=== PATIENT | female | born 1960 | race Caucasian/White ===

== ENCOUNTER 2020-04-18 22:55 | Emergency (ER) | payer OTHER ==
--- OUTSIDE RECORDS SUMMARY | 2020-04-18 22:59 | XMS REPORT | Continuity of Care Document ---
:1960 Author Organization [facility] t Address [address] [place] [address] Care Team Providers Name Role Phone Unavailable Unavailable Unavailable Payers Payer Name Policy Type Policy Number Effective Date Expiration Date S ource Problems This patient has no known problems. Allergies, Adverse Reactions, Alerts This patient has no known allergies or adverse reactions. Medications This patient has no known medications. Procedures This patient has no known procedures. Encounters Start End Encounter Admission Attending Care Care Encounter Source Date/Time Date/Time Type Type Clinicians Facility Department ID 2019-05-30 2019-05-30 Outpatient [facility] Lauren Guzmanoria 05:53:00 05:53:00 marie salazar [facility] Results This patient has no known results.
[2020-04-18] MEDS ORDERED: ONDANSETRON 4 MG/2 ML VIAL ONE (23:58)
[2020-04-18] MEDS ORDERED: NA CHLORIDE 0.9% 1,000 ML ONE (23:59)
[2020-04-19 00:29] LABS: Absolute Lymphocytes (CBC) 0.7 K/uL (0.7-4.9); Basophils % 0.6 % (0-1.3); Hematocrit 41.1 % (36.0-45.0); Lymphocytes % 13.3 % (15.3-44.8); MPV 8.9 fL (7.6-11.3); RBC Red Blood Cell Count 4.73 M/uL (3.86-4.86)
[2020-04-19 00:39] LABS: ALT/SGPT 17 U/L (12-78); AST/SGOT 18 U/L (15-37); Albumin 3.4 g/dL (3.4-5.0); Alkaline Phosphatase 72 U/L (45-117); BUN Blood Urea Nitrogen 10 mg/dL (7-18); Bicarbonate 26 mmol/L (21-32); Bilirubin Direct 0.1 mg/dL (0-0.2); Bilirubin Total 0.5 mg/dL (0.2-1.0); Glucose Level 101 mg/dL (74-106); Lipase 62 U/L (73-393); Potassium 3.7 mmol/L (3.5-5.1); Protein, Total 7.2 g/dL (6.4-8.2); Sodium Level 137 mmol/L (136-145)
[2020-04-19 01:53] LABS: Urine Blood 1+ (NEG); Urine Glucose NEGATIVE (NEG); Urine Protein NEGATIVE (NEG)
--- NOTE | 2020-04-19 01:54 | ER ---
Nurse's Notes [facility] Name: Annmarie Barroso Age: 60 yrs Sex: Female : 1960 Arrival Date: 04/18/2020 Time: 22:59 Bed 20 Private MD: Diagnosis: Coronavirus infection, unspecified;Nausea Presentation: 04/19 00:08 Chief complaint: Patient states: Reports she was diagnosed with covid on Tuesday has ea been having nausea, denies vomiting and diarrhea. Coronavirus screen: Client reports previous positive COVID test result. Ebola Screen: No symptoms or risks identified at this time. Initial Sepsis Screen: Does the patient meet any 2 criteria? No. Patient's initial sepsis screen is negative. Does the patient have a suspected source of infection? No. Patient's initial sepsis screen is negative. Risk Assessment: Do you want to hurt yourself or someone else? Patient reports no desire to harm self or others. Onset of symptoms was April 19, 2020. 00:08 Method Of Arrival: Ambulatory ea 00:08 Acuity: ISABEL 3 ea Historical: - Allergies: 00:10 Codeine; ea - Immunization history:: Adult Immunizations up to date. - Social history:: Smoking status: Patient denies any tobacco usage or history of. Screenin:09 Abuse screen: Denies threats or abuse. Nutritional screening: No deficits noted. ea Tuberculosis screening: No symptoms or risk factors identified. Fall Risk None identified. Assessment: 00:10 General: Appears uncomfortable, Behavior is appropriate for age. Pain: Denies pain. ea Neuro: Level of Consciousness is awake, alert, obeys commands, Oriented to person, place, time, situation. Cardiovascular: Patient's skin is warm and dry. Respiratory: Airway is patent Respiratory effort is even, unlabored, Respiratory pattern is regular, symmetrical. GI: Reports nausea. Derm: Skin is pink, warm \T\ dry. 01:02 Reassessment: Patient and/or family updated on plan of care and expected duration. Pain ea level reassessed. Patient is alert, oriented x 3, equal unlabored respirations, skin warm/dry/pink. Pt reports nausea decreased. 02:09 Reassessment: Patient and/or family updated on plan of care and expected duration. Pain ea level reassessed. Patient is alert, oriented x 3, equal unlabored respirations, skin warm/dry/pink. Discharge instruction given to patient verbalized the understaining of isntruciton. Vital Signs: 00:08 BP 127 / 60; Pulse 78; Resp 18; Pulse Ox 98% ; ea 00:30 Temp 99.2; ea 01:03 BP 126 / 77; Pulse 76; Resp 18; Pulse Ox 98% on R/A; ea 02:10 BP 124 / 65; Pulse 70; Resp 18; Pulse Ox 98% on R/A; ea ED Course: 04/18 22:59 Patient arrived in ED. cf2 23:15 Seamus Mcgowan MD is Attending Physician. christin 23:31 Juliet Gusman, YESENIA is Primary Nurse. ea 23:51 Chest Single View XRAY In Process Unspecified. EDSC 04/19 00:00 Inserted saline lock: 20 gauge in right antecubital area, using aseptic technique. ea Blood collected. 00:09 Triage completed. ea 00:09 Patient has correct armband on for positive identification. Bed in low position. Call ea light in reach. Pulse ox on. NIBP on. 00:10 Arm band placed on right wrist. Patient placed in an exam room, on a stretcher, on ea pulse oximetry. 02:08 No provider procedures requiring assistance completed. IV discontinued, intact, ea bleeding controlled, No redness/swelling at site. Pressure dressing applied. Administered Medications: 00:07 Drug: Zofran (Ondansetron) 4 mg Route: IVP; Site: right antecubital; ea 01:30 Follow up: Response: No adverse reaction ea 00:08 Drug: NS 0.9% 1000 ml Route: IV; Rate: 1000 ml; Site: right antecubital; ea 02:10 Follow up: Response: No adverse reaction; IV Status: Completed infusion; IV Intake: ea 1000ml Intake: 02:10 IV: 1000ml; Total: 1000ml. ea Outcome: 01:53 Discharge ordered by . [facility] 02:08 Discharged to home ambulatory. ea 02:08 Condition: stable 02:08 Discharge instructions given to patient, Instructed on discharge instructions, follow up and referral plans. medication usage, Demonstrated understanding of instructions, follow-up care, medications, Prescriptions given X 1. 02:09 Patient left the ED. ea Signatures: Dispatcher [employer] Juliet Jones, RN RN Yfn Esquivel cf2 Seamus Mcgowan MD MD mh7
--- NOTE | 2020-04-19 01:54 | EDPHYS ---
Physician Documentation [facility] Name: Annmarie Barroso Age: 60 yrs Sex: Female : 1960 Arrival Date: 04/18/2020 Time: 22:59 Bed 20 Private MD: ED Physician Seamus Mcgowan HPI: 04/18 23:29 This 60 yrs old Female presents to ER via Unassigned with complaints of mh7 Fever, COVID POSITIVE, Decreased Appetite. 23:29 The patient reports fever, that was measured at 100 degrees Fahrenheit. Onset: The mh7 symptoms/episode began/occurred 1 week(s) ago. Modifying factors: there are no obvious modifying factors. Associated signs and symptoms: Pertinent positives: myalgias, nausea, Pertinent negatives: abdominal pain, altered mental status, arthralgias, backache, chest pain, chills, cough, diarrhea, earache, headache, hemoptysis, night sweats, runny nose, sinus congestion, sinus drainage, skin rash, shortness of breath, sore throat, swelling, vomiting. Severity of symptoms: At their worst the symptoms were moderate 2 day(s) ago, in the emergency department the symptoms are unchanged. Tested positive for COVID 19 one week ago. Historical: - Allergies: 04/19 00:10 Codeine; ea - Immunization history:: Adult Immunizations up to date. - Social history:: Smoking status: Patient denies any tobacco usage or history of. ROS: 04/18 23:29 Eyes: Negative for injury, pain, redness, and discharge, ENT: Negative for injury, mh7 pain, and discharge, Neck: Negative for injury, pain, and swelling, Cardiovascular: Negative for chest pain, palpitations, and edema, Respiratory: Negative for shortness of breath, cough, wheezing, and pleuritic chest pain, Back: Negative for injury and pain, : Negative for injury, bleeding, discharge, and swelling, MS/Extremity: Negative for injury and deformity, Skin: Negative for injury, rash, and discoloration, Neuro: Negative for headache, weakness, numbness, tingling, and seizure, Psych: Negative for depression, anxiety, suicide ideation, homicidal ideation, and hallucinations, Allergy/Immunology: Negative for hives, rash, and allergies, Endocrine: Negative for neck swelling, polydipsia, polyuria, polyphagia, and marked weight changes, Hematologic/Lymphatic: Negative for swollen nodes, abnormal bleeding, and unusual bruising. Exam: 23:29 Constitutional: This is a well developed, well nourished patient who is awake, alert, mh7 and in no acute distress. Head/Face: Normocephalic, atraumatic. Eyes: Pupils equal round and reactive to light, extra-ocular motions intact. Lids and lashes normal. Conjunctiva and sclera are non-icteric and not injected. Cornea within normal limits. Periorbital areas with no swelling, redness, or edema. Neck: Trachea midline, no thyromegaly or masses palpated, and no cervical lymphadenopathy. Supple, full range of motion without nuchal rigidity, or vertebral point tenderness. No Meningismus. Chest/axilla: Normal chest wall appearance and motion. Nontender with no deformity. No lesions are appreciated. Cardiovascular: Regular rate and rhythm with a normal S1 and S2. No gallops, murmurs, or rubs. Normal PMI, no JVD. No pulse deficits. Respiratory: Lungs have equal breath sounds bilaterally, clear to auscultation and percussion. No rales, rhonchi or wheezes noted. No increased work of breathing, no retractions or nasal flaring. Abdomen/GI: Soft, non-tender, with normal bowel sounds. No distension or tympany. No guarding or rebound. No evidence of tenderness throughout. Back: No spinal tenderness. No costovertebral tenderness. Full range of motion. Skin: Warm, dry with normal turgor. Normal color with no rashes, no lesions, and no evidence of cellulitis. MS/ Extremity: Pulses equal, no cyanosis. Neurovascular intact. Full, normal range of motion. Neuro: Awake and alert, GCS 15, oriented to person, place, time, and situation. Cranial nerves II-XII grossly intact. Motor strength 5/5 in all extremities. Sensory grossly intact. Cerebellar exam normal. Normal gait. Psych: Awake, alert, with orientation to person, place and time. Behavior, mood, and affect are within normal limits. Vital Signs: 04/19 00:08 BP 127 / 60; Pulse 78; Resp 18; Pulse Ox 98% ; ea 00:30 Temp 99.2; ea 01:03 BP 126 / 77; Pulse 76; Resp 18; Pulse Ox 98% on R/A; ea 02:10 BP 124 / 65; Pulse 70; Resp 18; Pulse Ox 98% on R/A; ea MDM: 01:51 Differential diagnosis: viral Infection, bacterial infection, URI, bronchitis, 7 pneumonia UTI. Data reviewed: vital signs, nurses notes, lab test result(s), CBC, electrolytes, urinalysis, radiologic studies, plain films. Data interpreted: Pulse oximetry: on room air is 98 %. Interpretation: normal. Counseling: I had a detailed discussion with the patient and/or guardian regarding: the historical points, exam findings, and any diagnostic results supporting the discharge/admit diagnosis, lab results, radiology results, the need for outpatient follow up, to return to the emergency department if symptoms worsen or persist or if there are any questions or concerns that arise at home. Response to treatment: the patient's symptoms have resolved after treatment, the patient's blood pressure is in an acceptable range, mental status has returned to baseline, the patient no longer shows bradycardia, the patient is not short of breath, the patient is not tachycardic, the patient's pain is gone, the patient's temperature has normalized, patient is well hydrated. 01:53 Patient medically screened. health system 04/18 23:28 Order name: CBC with Diff; Complete Time: 00:40 health system 04/18 23:28 Order name: Basic Metabolic Panel; Complete Time: 00:40 health system 04/18 23:28 Order name: LFT's; Complete Time: 00:40 health system 04/18 23:28 Order name: Blood Culture Adult (2) health system 04/18 23:28 Order name: Lactate; Complete Time: 01:16 health system 04/18 23:28 Order name: Procalcitonin; Complete Time: 01:16 health system 04/18 23:28 Order name: Urine Dipstick-Ancillary (obtain specimen); Complete Time: 02:10 health system 04/18 23:28 Order name: Chest Single View XRAY health system 04/18 23:28 Order name: Lipase; Complete Time: 00:40 health system 04/19 01:31 Order name: Urine Dipstick--Ancillary (enter results) mw2 Administered Medications: 00:07 Drug: Zofran (Ondansetron) 4 mg Route: IVP; Site: right antecubital; ea 01:30 Follow up: Response: No adverse reaction ea 00:08 Drug: NS 0.9% 1000 ml Route: IV; Rate: 1000 ml; Site: right antecubital; ea 02:10 Follow up: Response: No adverse reaction; IV Status: Completed infusion; IV Intake: ea 1000ml Disposition: 04/19/20 01:53 Discharged to Home. Impression: Coronavirus infection, unspecified, Nausea. - Condition is Stable. - Discharge Instructions: Nausea, Adult, COVID-19. - Prescriptions for Zofran ODT 4 mg Oral tablet,disintegrating - place 1 tablet by TRANSLINGUAL route every 8 hours As needed; 10 tablet. - Medication Reconciliation Form, Thank You Letter, Antibiotic Education, Prescription Opioid Use form. - Follow up: Private Physician; When: 1 - 2 days; Reason: Worsening of condition, Recheck today's complaints, Continuance of care, Re-evaluation by your physician. - Problem is an ongoing problem. - Symptoms have improved. Signatures: Dispatcher [employer] EDJuliet Waddell RN RN ea Holmes, Maurice, MD MD mh7 Corrections: (The following items were deleted from the chart) 02:09 01:53 04/19/2020 01:53 Discharged to Home. Impression: Coronavirus infection, ea unspecified; Nausea. Condition is Stable. Forms are Medication Reconciliation Form, Thank You Letter, Antibiotic Education, Prescription Opioid Use. Follow up: Private Physician; When: 1 - 2 days; Reason: Worsening of condition, Recheck today's complaints, Continuance of care, Re-evaluation by your physician. Problem is an ongoing problem. Symptoms have improved. mh7
[2020-04-19 02:13] VITALS: O2SAT 98
[2020-04-19 02:14] VITALS: TEMP 99.2
[2020-04-19 02:16] VITALS: BP 126/77
--- NOTE | 2020-04-19 11:49 | RAD REPORT ---
EXAM DESCRIPTION: RAD - Chest Single View - 04/18/2020 11:51 pm CLINICAL HISTORY: FEVER Chest pain. COMPARISON: No comparisons FINDINGS: Portable technique limits examination quality. The lungs are grossly clear. The heart is normal in size. No displaced fractures.Enchondroma suspect in the proximal right humerus. IMPRESSION: No acute intrathoracic process suspected.
== END 2020-04-19 02:09 | disposition home or self-care (01) ==
LOC: ER 22:55
DX: U07.1 COVID-19 (principal); R11.0 Nausea; Z88.5 Allergy status to narcotic agent
CPT/HCPCS: 96361; 87040 ×2; 85025; 80048; 36415; 80076; 83605; 81003; 83690; 84145; 71045; 96374; 99284; J7030; J2405

== ENCOUNTER 2021-09-25 06:29 | Day surgery (SDC) | payer OTHER ==
[2021-09-25] MEDS ORDERED: Ringers Lactate 1,000 ML IV ONE (06:56)
[2021-09-25] MEDS ORDERED: LIDOCAINE 1% MPF 5 ML VIAL ONE (08:29)
[2021-09-25] MEDS ORDERED: propofoL 200 MG/20 ML VIAL IV ONE ×2 (08:29)
--- NOTE | 2021-09-25 08:59 | ENDO RPT ---
[address], [address] COLONOSCOPY PROCEDURE REPORT EXAM DATE: 09/25/2021 PATIENT NAME: Annmaire Barroso MR #: [id number] BIRTHDATE: 1960 ATTENDING: Raza Hayden DR STATUS: outpatient BALLASTER: Rhonda Stephenson RN and Marcelo Rolon [facility] INDICATIONS: The patient is a 61 yr old Female here for a colonoscopy due to colon cancer screening PROCEDURE PERFORMED: Colonoscopy with biopsy - cold polypectomy MEDICATIONS: Per Anesthesia. ESTIMATED BLOOD LOSS: None CONSENT: The patient understands the risks and benefits of the procedure and understands that these risks include, but are not limited to: sedation, allergic reaction, infection, perforation and/or bleeding. Alternative means of evaluation and treatment include, among others: physical exam, x-rays, and/or surgical intervention. The patient elects to proceed with this endoscopic procedure. DESCRIPTION OF PROCEDURE: During intra-op preparation period all mechanical medical equipment was checked for proper function. Hand hygiene and appropriate measures for infection prevention was taken. Procedure, possible complications, alternatives including, but not limited to possibility of bleeding, perforation, tear, infection, sepsis, need for surgery, need for blood transfusion, were explained to the patient. After the risks, benefits and alternatives of the procedure were thoroughly explained, Informed consent was verified, confirmed and timeout was successfully executed by the treatment team. The patient was placed in the left lateral position. A digital rectal exam was performed and revealed internal hemorrhoids. After appropriate level of anesthesia, the scope was passed. The EC-[id number] ([id number]) endoscope was introduced through the anus and advanced to the cecum, which was identified by both the appendix and ileocecal valve. The quality of the prep was fair. The instrument was then slowly withdrawn as the colon was fully examined. Scope withdrawal time was 11 minutes. COLON FINDINGS: A smooth sessile polyp ranging between 3-5mm in size was found in the sigmoid colon. A polypectomy was performed with cold forceps. The resection was complete, the polyp tissue was completely retrieved and sent to histology. Was found petechiae and in the rectum. A biopsy of the lesion was performed using cold forceps. Small internal hemorrhoids were found. Retroflexed views revealed no abnormalities. The scope was then completely withdrawn from the patient and the procedure terminated. ADVERSE EVENTS: There were no complications. IMPRESSIONS: 1. Sessile polyp ranging between 3-5mm in size was found in the sigmoid colon; polypectomy was performed with cold forceps 2. Petechiae and in the rectum; biopsy of the lesion was performed using cold forceps 3. Small internal hemorrhoids RECOMMENDATIONS: 1. avoid NSAIDS for 2 weeks 2. await biopsy results 3. fiber rich diet 4. follow-up: office 2 week(s) 5. Monitor for any evidence of rectal bleeding. 6. yearly hemoquant 7. hemorrhoidal hygiene 8. yearly hemoccult starting in 4 years 9. increase dietary water RECALL: for Colonoscopy, pending biopsy results. Raza Hayden DR eSigned: Raza Hayden DR 09/25/2021 8:59 AM cc: CPT CODES: ICD9 CODES: PATIENT NAME: Annmarie Barroso MR#: [id number]
[2021-09-25 10:18] VITALS: BP 126/76; TEMP 97.8; O2SAT 99
== END 2021-09-25 09:35 | disposition home or self-care (01) ==
LOC: OR 06:29
PROVIDERS: ATTEND Surgery
PROC: 0DBN8ZX Excision of Sigmoid Colon, Via Natural or Artificial Opening Endoscopic, Diagnostic (ICD-10-PCS; 2021-09-25)
PROC: 0DBP8ZX Excision of Rectum, Via Natural or Artificial Opening Endoscopic, Diagnostic (ICD-10-PCS; principal; 2021-09-25 08:00)
DX: Z12.11 Encounter for screening for malignant neoplasm of colon (principal); K64.8 Other hemorrhoids; Z20.822 Contact with and (suspected) exposure to COVID-19
CPT/HCPCS: 45380; 88305; U0003; J2704 ×2; J7120